=== PATIENT | male | born 1975 | race Caucasian/White ===

== ENCOUNTER 2022-06-13 17:00 | Outpatient (RCR) | payer OTHER, SELFPAY ==
--- NOTE | 2022-05-01 15:31 | HP.PTEVAL_ITS ---
Patient's Visit Information TANESHA WILSON is a 46 year old M referred to Physical Therapy by Dr. Syed Cordova MD with a diagnosis of L hip pain. Date of Evaluation: 05/01/22 Physical Therapist: Osbaldo Barth PT, ATC - Visit Plan Frequency: 2-3x /Week Duration: 3-6 Plan: Aquatic therapy consisting of L hip stretching and strengthening, core strengthening, and HEP - Subjective Pt reports he has had L hip pain since he was 14 years old. 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 Pt reports since then, he has suffered with intermittent pain. 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 Pt reports he was told he will need a L ZOEY performed in the future, but he has to lose a bunch of weight and get stronger prior to having the surgery. Pt reports he does have some tingling in his L LE secondary to his sciatica that is present at this time. Pt notes significant sleep difficulty at this time secondary to pain. Pt reports he has stairs at home and is able to negotiate them very slowly. Pt also notes he has to help lift his leg into his car secondary to lack of ROM and strength. 3/10 pain at rest, 8/10 pain at worst. - Pain L hip Pain Intensity (Out of 10): 3 Pain Intensity Range: 8 - Objective Neuro: B LE sensation is WNL to light touch. B bicipital reflex= 2/3. ROM: R hip flex= 90, ext= 20; L hip flex= 50, ext= 0. MMT: R hip flex= 34, ext= 25 #F; L hip flex= 8, ext= 13 #F. Special tests: Pos quadrant test - Balance/Special Test Scores Lower Extremity Functional Score: 41 - Goals Goal 1:: Decrease L hip pain x 50% to aid with sleep Goal Time Frame: 2-4 Weeks Goal 2:: Increase L hip strength x 5-10#F to aid with stair negotiation Goal Time Frame: 2-4 Weeks Goal 3:: Increase L hip flex ROM x 15 degrees to aid with car transfers Goal Time Frame: 2-4 Weeks Goal 4:: I with HEP Goal Time Frame: 2-4 Weeks - Rehabilitation Potential Physical Therapy Diagnosis: Pt has L hip pain, weakness, and limited ROM secondary to OA of L hip Rehabilitation Potential: Good - Anticipated Interventions Patient/Client Instruction: Educate patient on: Condition, Plan of Care For the Purpose of:: To improve self management Therapeutic Exercise to Include: Strength training, Endurance training, Flexibilty training, In an aquatic setting, Active ROM, Dynamic Lumbar Stabilization For the Purpose of:: To decrease pain, To increase ROM, To improve muscle pe rformance and motor function Cryotherapy (ice pack, ice massage): Yes For the Purpose of:: To decrease pain Thank you for the opportunity to evaluate your patient. For Medicare and Medicare HMO plans, please review the plan of care and approve it. It will need to be FAXED BACK to us at [phone] for Medicare purposes. For Medicare only, by signing this I certify the plan of care. Please let me know if there are questions or concerns regarding this plan of care. Physician Signature: Date:
--- NOTE | 2022-06-13 17:35 | HP.PTEVAL_ITS ---
Patient's Visit Information TANESHA WILSON is a 46 year old M referred to Physical Therapy by Dr. Syed Cordova MD with a diagnosis of L hip pain. Date of Evaluation: 05/01/22 Physical Therapist: Osbaldo Barth, PT, ATC - Visit Plan Frequency: 2-3x /Week Duration: 3-6 Plan: Discontinue to HEP - Subjective Pt reports he has had L hip pain since he was 14 years old. 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 Pt reports since then, he has suffered with intermittent pain. 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 Pt reports he was told he will need a L ZOEY performed in the future, but he has to lose a bunch of weight and get stronger prior to having the surgery. Pt reports he does have some tingling in his L LE secondary to his sciatica that is present at this time. Pt notes significant sleep difficulty at this time secondary to pain. Pt reports he has stairs at home and is able to negotiate them very slowly. Pt also notes he has to help lift his leg into his car secondary to lack of ROM and strength. 3/10 pain at rest, 8/10 pain at worst. - Pain L hip Pain Intensity (Out of 10): 4 Pain Intensity Range: 8 Comment: while on medications for the pain. - Objective Neuro: B LE sensation is WNL to light touch. B bicipital reflex= 2/3. ROM: R hip flex= 90, ext= 20; L hip flex= 50, ext= 0. MMT: R hip flex= 34, ext= 25 #F; L hip flex= 8, ext= 13 #F. Special tests: Pos quadrant test - Balance/Special Test Scores Lower Extremity Functional Score: 33 - Goals Goal 1:: Decrease L hip pain x 50% to aid with sleep Goal Time Frame: 2-4 Weeks Goal 2:: Increase L hip strength x 5-10#F to aid with stair negotiation Goal Time Frame: 2-4 Weeks Goal 3:: Increase L hip flex ROM x 15 degrees to aid with car transfers Goal Time Frame: 2-4 Weeks Goal 4:: I with HEP Goal Time Frame: 2-4 Weeks - Rehabilitation Potential Physical Therapy Diagnosis: Pt has L hip pain, weakness, and limited ROM secondary to OA of L hip Rehabilitation Potential: Good - Anticipated Interventions Patient/Client Instruction: Educate patient on: Condition, Plan of Care For the Purpose of:: To improve self management Therapeutic Exercise to Include: Strength training, Endurance training, Flexibilty training, In an aquatic setting, Active ROM, Dynamic Lumbar Stabilization For the Purpose of:: To decrease pain, To increase ROM, To improve muscle performance and motor function Cryotherapy (ice pack, ice massage): Yes For the Purpose of:: To decrease pain Thank you for the opportunity to evaluate your patient. For Medicare and Medicare HMO plans, please review the plan of care and approve it. It will need to be FAXED BACK to us at [phone] for Medicare purposes. For Medicare only, by signing this I certify the plan of care. Please let me know if there are questions or concerns regarding this plan of care. Physician Signature: Date:
== END 2022-06-13 19:00 | disposition home or self-care (01) ==
LOC: PT 17:00
PROVIDERS: PCP Family Medicine; Referring Provider Specialist; Visit Provider Specialist
DX: M16.7 Other unilateral secondary osteoarthritis of hip (principal); Z71.3 Dietary counseling and surveillance
CPT/HCPCS: 97113; 97161; 97164